=== PATIENT | male | born 1960 | race Caucasian/White ===

== ENCOUNTER 2022-01-25 08:34 | Observation (INO) ==
[2022-01-25] MEDS ORDERED: CeFAZolin Syr 2,000MG/20 ML 2,000 MG/20 ML SYRINGE IVPB ONE (08:55)
[2022-01-25] MEDS ORDERED: Ringers Solution, Lactated 1,000 ML IVC SCH ×2 (09:00→17:42)
[2022-01-25] MEDS ORDERED: Acetaminophen IV 1,000 MG/100 ML BAG IVPB ONE (09:12)
[2022-01-25] MEDS ORDERED: tiZANidine 4 MG TABLET PO ONE (09:12)
[2022-01-25] MEDS ORDERED: Famotidine 20 MG/2 ML VIAL IVP ONE (09:12)
[2022-01-25] MEDS ORDERED: *HR* Propofol 200 MG/20 ML VIAL IVP ONE (10:09)
[2022-01-25] MEDS ORDERED: Lidocaine -MPF 2% 5 ML VIAL ONE (10:13)
[2022-01-25] MEDS ORDERED: Ondansetron 4 MG/2 ML VIAL ONE (10:13)
[2022-01-25] MEDS ORDERED: *HR* Rocuronium Bromide 50 MG/5 ML VIAL ONE (10:13)
[2022-01-25] MEDS ORDERED: *HR* FentaNYL (PF) 100 MCG/2 ML VIAL ONE (10:14)
[2022-01-25] MEDS ORDERED: Polymyxin B Sulfate 500,000 UNIT, Sodium Chloride IRRigation 1,000 ML IR ONE (10:30)
[2022-01-25] MEDS ORDERED: *HR* Remifentanil 1 MG VIAL IVP ONE ×3 (11:15→14:11)
[2022-01-25] MEDS ORDERED: *HR* Magnesium Sulfate 1 GM/2 ML VIAL ONE (11:20)
[2022-01-25] MEDS ORDERED: Ketamine HCL *QUVA* 50mg (1mL) SYRINGE ONE (11:21)
[2022-01-25] MEDS ORDERED: EPHEDrine 50 MG/ML VIAL ONE (11:47)
[2022-01-25] MEDS ORDERED: *HR* Phenylephrine 10 MG/ML VIAL ONE (14:30)
[2022-01-25] MEDS ORDERED: *HR* HYDROMORPHONE 2 MG/ML VIAL ONE (15:33)
[2022-01-25] MEDS ORDERED: Ondansetron 4 MG/2 ML VIAL IVP PRN (17:42)
[2022-01-25] MEDS ORDERED: Acetaminophen 325 MG TABLET PO PRN (17:42)
[2022-01-25] MEDS ORDERED: *HR* HYDROcodone/Acet 5/325 mg TABLET PO PRN (17:42)
[2022-01-25] MEDS ORDERED: Naloxone 0.4 MG/ML INJ IVP PRN (17:42)
[2022-01-25] MEDS: *HR* OxyCODONE Immed Rel 5 MG TABLET PO PRN (20:16)
[2022-01-25] MEDS: CeFAZolin 2 GM/120 ML BAG IVPB SCH (20:17)
[2022-01-26] MEDS: CeFAZolin 2 GM/120 ML BAG IVPB SCH (03:48)
[2022-01-26] MEDS: *HR* OxyCODONE Immed Rel 5 MG TABLET PO PRN ×3 (04:58→15:23)
[2022-01-26] MEDS: allopurinoL 100 MG TABLET PO SCH ×3 (10:27→20:51)
[2022-01-26] MEDS: Metoprolol XL (24 HR) Succ 25 MG TAB.ER.24H PO SCH (10:27)
[2022-01-26] MEDS: Furosemide 20 MG TABLET PO SCH (10:27)
[2022-01-26] MEDS: Gabapentin 400 MG CAPSULE PO SCH ×2 (15:22→20:51)
[2022-01-27] MEDS: Furosemide 20 MG TABLET PO SCH (08:31)
[2022-01-27] MEDS: Metoprolol XL (24 HR) Succ 25 MG TAB.ER.24H PO SCH (08:31)
[2022-01-27] MEDS: Gabapentin 400 MG CAPSULE PO SCH ×2 (08:31→14:54)
[2022-01-27] MEDS: allopurinoL 100 MG TABLET PO SCH ×2 (08:31→14:54)
[2022-01-27] MEDS: *HR* OxyCODONE Immed Rel 5 MG TABLET PO PRN (08:35)
[2022-01-27 15:00] VITALS: BP 127/75; PULSE 92; TEMP 99.2; O2SAT 96
[2022-02-01] MEDS ORDERED: Ergocalciferol (VIT D2) 50,000 UNIT (1.25MG) CAP PO SCH (09:10)
== END 2022-01-27 16:55 | disposition home or self-care (01) ==
LOC: 4WAOSI 08:34 → SDCAOSI 08:34 → 4WAOSI 17:19
PROVIDERS: ADMIT Orthopaedic Surgery Orthopaedic Surgery of the Spine; ATTEND Orthopaedic Surgery Orthopaedic Surgery of the Spine